=== PATIENT | female | born 1995 | race Caucasian/White ===

== ENCOUNTER 2023-05-01 07:43 | Day surgery (SDC) | payer OTHER ==
[~2023-05-01] VITALS: Ht 160 cm; Wt 103.5 kg
[2023-05-01] MEDS ORDERED: CODACE30 (08:00)
[2023-05-01] MEDS ORDERED: PROP10 (08:01)
[2023-05-01] MEDS ORDERED: FLUO10 (08:01)
[2023-05-01] MEDS ORDERED: NEXPLANON68 MG (08:01)
[2023-05-01] MEDS ORDERED: BUSP5 (08:01)
[2023-05-01] MEDS ORDERED: CYCLOBENZAPRINE5 MG (08:01)
[2023-05-01] MEDS ORDERED: OMEP20ER (08:01)
[2023-05-01] MEDS ORDERED: ACET325 (08:28)
--- NOTE | 2023-05-01 10:40 | NUR ---
05/01/23 1040 Mandi Gaxiola IV DC'D, CATH INTACT. PRESSURE DRESSING APPLIED. PT TOLERATED WELL
== END 2023-05-01 09:55 | disposition home or self-care (01) ==
LOC: ORSCSDS 07:43
PROVIDERS: Internal Medicine Gastroenterology
PROC: 0DBF8ZX Excision of Right Large Intestine, Via Natural or Artificial Opening Endoscopic, Diagnostic (ICD-10-PCS; principal; 2023-05-01 09:00)
PROC: 0DBC8ZX Excision of Ileocecal Valve, Via Natural or Artificial Opening Endoscopic, Diagnostic (ICD-10-PCS; principal; 2023-05-01 09:00)
PROC: 0DBG8ZX Excision of Left Large Intestine, Via Natural or Artificial Opening Endoscopic, Diagnostic (ICD-10-PCS; principal; 2023-05-01 09:00)
PROC: 0DBP8ZX Excision of Rectum, Via Natural or Artificial Opening Endoscopic, Diagnostic (ICD-10-PCS; principal; 2023-05-01 09:00)
PROC: 0DBB8ZX Excision of Ileum, Via Natural or Artificial Opening Endoscopic, Diagnostic (ICD-10-PCS; principal; 2023-05-01 09:00)
DX: K50.90 Crohn's disease, unspecified, without complications (principal); K64.8 Other hemorrhoids; K52.9 Noninfective gastroenteritis and colitis, unspecified; K21.9 Gastro-esophageal reflux disease without esophagitis; Z68.41 Body mass index [BMI] 40.0-44.9, adult; E66.01 Morbid (severe) obesity due to excess calories; Z87.891 Personal history of nicotine dependence; Z79.899 Other long term (current) drug therapy
CPT/HCPCS: 88305; J2704; J7120